=== PATIENT | male | born 1985 | race Two or more races ===

== ENCOUNTER 2018-08-03 10:06 | Emergency (ER) | payer SELFPAY ==
[~2018-08-03] VITALS: Ht 177.8 cm; Wt 88.0 kg
[2018-08-03] MEDS ORDERED: DEXT30SU17 PO (10:17)
[2018-08-03] MEDS ORDERED: GUAI600T26 PO (10:17)
[2018-08-03] MEDS ORDERED: ALBUTEROL (0.083%) 2.5MG/3ML NEB HHN ONE ×2 (12:00→12:45)
[2018-08-03] MEDS ORDERED: PREDNISONE 20MG TABLET PO ONE (12:00)
[2018-08-03] MEDS ORDERED: IBUPROFEN 600MG TABLET PO PRN (13:15)
[2018-08-03 13:30] VITALS: BP 130/76
== END 2018-08-03 14:03 | disposition home or self-care (01) ==
LOC: ER 10:06
DX: J06.9 Acute upper respiratory infection, unspecified (principal); F17.210 Nicotine dependence, cigarettes, uncomplicated; Z79.899 Other long term (current) drug therapy
CPT/HCPCS: 71045; 87804; 94640; 99284; J7512; J7611